=== PATIENT | male | born 1995 | race Two or more races ===

== ENCOUNTER 2023-08-31 00:19 | Inpatient (IN) | payer OTHER ==
[2023-08-31] MEDS ORDERED: ACETAMINOPHEN INJECTION 100 ML IVPB ONE (01:07)
[2023-08-31] MEDS ORDERED: ONDANSETRON 4 MG/2 ML VIAL ONE (01:07)
[2023-08-31] MEDS: ACETAMINOPHEN 1000 MG/100 ML BAG IVPB ONE (01:55)
[2023-08-31] MEDS: ONDANSETRON 4 MG/2 ML VIAL IVPUSH ONE (01:55)
[2023-08-31] MEDS: LACTATED RINGERS SOLUTION 1000 ML INFUS.BAG IV ONE (01:56)
[2023-08-31 02:11] LABS: BASO % 0.1 % (0-2.0); EOS % 0.4 % (0-4.5); HEMOGLOBIN 14.2 GM/dL (11.7-16.9); LYMPH % 17.1 % (8-40); MCH 27.6 pg (25.7-33.7); MCHC 34.6 g/dl (32.0-35.9); MEAN CELL VOLUME 79.8 fl (80-96); MEAN PLT VOLUME 9.5 fl (7.5-11.1); NEUT % 72.4 % (42.8-82.8); PLATELET COUNT 200 10^3/uL (134-434); RBC 5.14 M/mm3 (4.00-5.60); RDW 14.1 % (11.9-15.9); WHITE BLOOD COUNT 9.5 K/mm3 (4.0-10.0)
[2023-08-31 02:29] LABS: CHLORIDE 112 mmol/L (98-107); SODIUM 146 mmol/L (136-145)
[2023-08-31 02:31] LABS: ALBUMIN 3.3 g/dl (3.4-5.0); BLOOD UREA NITROGEN 9.7 mg/dL (7-18); CALCIUM 8.9 mg/dL (8.5-10.1); CO2 25 mmol/L (21-32); GLUCOSE,RANDOM 124 mg/dL (74-106); MAGNESIUM 1.8 mg/dL (1.8-2.4)
[2023-08-31 02:35] LABS: CREATININE 0.5 mg/dL (0.55-1.3); SGOT/AST 26 U/L (15-37); SGPT/ALT 57 U/L (13-61)
[2023-08-31 02:36] LABS: BILIRUBIN,TOTAL 1.2 mg/dL (0.2-1)
[2023-08-31 02:37] LABS: ALK PHOS 254 U/L (45-117); ANION GAP 8 mmol/L (4-13); POTASSIUM 2.4 mmol/L (3.5-5.1); TOT PROT 5.8 g/dl (6.4-8.2)
[2023-08-31] MEDS ORDERED: POTASSIUM CHLORIDE ORAL LIQUID 20 MEQ/15 ML ONE (02:44)
[2023-08-31] MEDS ORDERED: SODIUM CHLORIDE 0.9% 1000 ML INFUS.BAG IV ONE (02:47)
[2023-08-31] MEDS: POTASSIUM CHLORIDE ORAL LIQUID 20 MEQ/15 ML PO ONE (03:04)
[2023-08-31] MEDS: SODIUM CHLORIDE 0.9% 500 ML INFUS.BAG IV ONE (03:05)
[2023-08-31] MEDS: KCL 10 MEQ IVPB 10 MEQ/100 ML INFUS.BAG IVPB SCH (03:05)
[2023-08-31 03:25] LABS: METHADONE, UR NEGATIVE (NEGATIVE)
[2023-08-31 03:26] LABS: COCAINE, UR NEGATIVE (NEGATIVE); OPIATES, URI NEGATIVE (NEGATIVE); PHENCYCLIDINE,URINE NEGATIVE (NEGATIVE); URINE BARBITURATES NEGATIVE (NEGATIVE); URINE BENZODIAZEPINES NEGATIVE (NEGATIVE)
[2023-08-31 03:35] LABS: URINE AMPHETAMINES NEGATIVE (NEGATIVE)
[2023-08-31] MEDS ORDERED: KCL 10 MEQ IVPB 10 MEQ/100 ML INFUS.BAG IVPB ONE (04:04)
[2023-08-31] MEDS: SODIUM CHLORIDE 1,000 ML IV SCH (04:32)
[2023-08-31] MEDS ORDERED: ONDANSETRON 4 MG/2 ML VIAL IVPUSH PRN (05:00)
[2023-08-31 05:42] LABS: URINE APPEARANCE CLEAR; URINE BILIRUBIN NEGATIVE (NEGATIVE); URINE COLOR YELLOW; URINE GLUCOSE (UA) NEGATIVE (NEGATIVE); URINE KETONE NEGATIVE (NEGATIVE); URINE LEUK ESTERASE NEGATIVE (NEGATIVE); URINE NITRITE NEGATIVE (NEGATIVE); URINE PROTEIN NEGATIVE (NEGATIVE); URINE UROBILINOGEN 0.2 mg/dL (0.2-1.0)
[2023-08-31 06:47] LABS: PHOSPHOROUS 2.8 mg/dL (2.5-4.9)
[2023-08-31 08:59] VITALS: RESP 18; BMI 20.6
[2023-08-31] MEDS: LACTATED RINGERS SOLUTION 1,000 ML/1,000 ML INFUS.BAG IV SCH (09:04)
[2023-08-31] MEDS: POTASSIUM CHLORIDE TABS 20 MEQ TABLET.ER (FP) PO ONE (09:04)
[2023-08-31] MEDS: ENOXAPARIN NA (PORCINE) 40 MG/0.4 ML DISP.SYRIN SQ SCH (09:04)
[2023-08-31 09:44] LABS: HEMATOCRIT 39.6 % (35.4-49); HEMOGLOBIN 13.4 GM/dL (11.7-16.9); MCH 27.1 pg (25.7-33.7); MCHC 33.9 g/dl (32.0-35.9); MEAN CELL VOLUME 79.9 fl (80-96); MEAN PLT VOLUME 9.5 fl (7.5-11.1); PLATELET COUNT 205 10^3/uL (134-434); RBC 4.96 M/mm3 (4.00-5.60); RDW 14.1 % (11.9-15.9); WHITE BLOOD COUNT 6.9 K/mm3 (4.0-10.0)
[2023-08-31 10:03] LABS: POTASSIUM 3.9 mmol/L (3.5-5.1)
[2023-08-31 10:05] LABS: ALBUMIN 3.2 g/dl (3.4-5.0); BLOOD UREA NITROGEN 7.3 mg/dL (7-18); CALCIUM 9.6 mg/dL (8.5-10.1); MAGNESIUM 1.8 mg/dL (1.8-2.4)
[2023-08-31 10:08] LABS: CREATININE 0.5 mg/dL (0.55-1.3); PHOSPHOROUS 2.7 mg/dL (2.5-4.9)
[2023-08-31 10:11] LABS: BILIRUBIN,TOTAL 1.8 mg/dL (0.2-1); TOT PROT 5.6 g/dl (6.4-8.2)
[2023-08-31 11:15] LABS: BILIRUBIN,DIRECT 0.4 mg/dL (0.0-0.2)
[2023-08-31 12:08] VITALS: TEMP 98
[2023-08-31 18:27] VITALS: BP 130/71; PULSE 98
== END 2023-08-31 19:05 | disposition home or self-care (01) | DRG 425 ==
LOC: JER 00:19 → JERBED 02:52 → J6S 06:58
PROVIDERS: ADMIT Internal Medicine; ATTEND Internal Medicine
DX: E87.6 Hypokalemia (principal); F12.90 Cannabis use, unspecified, uncomplicated; R11.2 Nausea with vomiting, unspecified; F17.210 Nicotine dependence, cigarettes, uncomplicated
CPT/HCPCS: 0241U-QW; 36415; 80053; 80307; 81003; 82248; 82977; 83735; 84100; 85025; 85027; 87086; 93005; 93010; 99285-25; J0131